=== PATIENT | female | born 1965 | race Two or more races ===

== ENCOUNTER 2019-12-06 15:50 | Emergency (ER) | payer BC ==
[~2019-12-06] VITALS: Ht 162.6 cm; Wt 69.4 kg
[~2019-12-06 15:50] MED LIST: AMOXICILLIN500 MG PO; BACTRIM DS TAB1 EACH PO; CYCLOBENZAPRINE10 MG PO; GLIPIZIDE XL5 MG PO; IBUPROFEN800 MG PO; KEFLEX500 MG PO; LANTUS SOL100 UNIT/1 SUB-Q; MAPAP325 MG PO; METFORMIN HCL1000 MG PO; NAPROXEN500 MG PO; NORCO 5-325 TA1 EACH PO; OMEPRAZOLE20 M1 PO; OXYCODON-ACETA1 EAC2 PO; OXYCODONE-ACET1 EAC1 PO; TRAMADOL HCL50 MG PO
[2019-12-06] MEDS ORDERED: ALL DAY ALLERGY10 MG PO (16:14)
[2019-12-06] MEDS ORDERED: LIPITOR20 MG PO (16:14)
[2019-12-06] MEDS ORDERED: BASAGLAR K100 UNIT/1 SUB-Q (16:15)
[2019-12-06] MEDS ORDERED: SUDOGEST30 MG PO (16:16)
[2019-12-06] MEDS ORDERED: VENTOLIN HFA18 GM (16:16)
[2019-12-06] MEDS ORDERED: FAMCICLOVIR500 MG PO (17:18)
[2019-12-06] MEDS ORDERED: PREDNISONE20 MG PO (17:18)
== END 2019-12-06 17:36 | disposition home or self-care (01) ==
LOC: ED 15:50
DX: G51.0 Bell's palsy (principal); Z88.1 Allergy status to other antibiotic agents; Z88.5 Allergy status to narcotic agent; Z79.899 Other long term (current) drug therapy
CPT/HCPCS: 70450; 80053; 85025; 99284-25; J7512

== ENCOUNTER 2020-02-21 10:49 | Emergency (ER) | payer BC ==
[~2020-02-21] VITALS: Ht 162.6 cm; Wt 69.4 kg
[~2020-02-21 10:49] MED LIST changes: +ALL DAY ALLERGY10 MG PO; +BASAGLAR K100 UNIT/1 SUB-Q; +FAMCICLOVIR500 MG PO; +LIPITOR20 MG PO; +PREDNISONE20 MG PO; +SUDOGEST30 MG PO; +VENTOLIN HFA18 GM
[2020-02-21] MEDS ORDERED: PIOGLITAZONE HC45 MG PO (11:04)
[2020-02-21] MEDS ORDERED: OMEPRAZOLE40 MG PO (11:06)
[2020-02-21] MEDS ORDERED: NAPROXEN500 MG PO (11:06)
[2020-02-21] MEDS ORDERED: FLUTICASONE PRO16 GM NAS (11:06)
--- NOTE | 2020-02-21 21:13 | EKG ---
[facility] [address] [facility] [place] [address] Signed Sinus rhythm with premature ventricular complexes or fusion complexes Low voltage QRS Borderline ECG No previous ECGs available Confirmed by JOSE MANUEL GARCIA DO ([id number]) on 02/21/2020 9:13:21 PM Electronically Signed By: JOSE MANUEL GARCIA DO 02/21/202112 PATIENT NAME: ADRIANA BRANHAMANATristin ALVAREZ Electrocardiogram DATE OF : 69 PHYSICIAN: JOSE MANUEL GARCIA DO REPORT #: [id number] REPORT IS CONFIDENTIAL AND NOT TO BE RELEASED WITHOUT AUTHORIZATION
--- NOTE | 2020-02-23 21:39 | PATH ---
[facility] [address] [facility] [place], [place] [address] Signed ORDERING PHYSICIAN: Bill Winkler MD PATIENT NAME: ANA BARRETOINA GENDER: F : 1965 SPECIMEN(S): No Source Given MOLECULAR PATHOLOGY RESULTS: SARS-CoV-2 Not Detected ADDITIONAL NOTES.: The [place] Fusion SARS-CoV-2 Assay is a multiplex real-time PCR (RT-PCR) in vitro diagnostic test intended for the qualitative detection of RNA from SARS-CoV-2 from individuals who meet COVID-19 clinical and/or epidemiological criteria. In general, SARS-CoV-2 RNA can be detected during the acute phase of infection. Positive results indicate the presence of SARS-CoV-2 RNA. Clinical correlation with patient history and other diagnostic information is necessary to determine patient infection status. Positive results do not rule out bacterial infection or co-infection with other viruses. Negative results do not preclude SARS-CoV-2 infection and should not be used as the sole basis for patient management decisions. Negative results must be combined with other clinical observations, patient history, and epidemiological information. The [place] Fusion SARS-CoV-2 Assay is not yet approved or cleared by the [place] FDA. When there are no FDA-approved or cleared tests available, and other criteria are met, FDA can make tests available under an emergency access mechanism called an Emergency Use Authorization (EUA). The EUA for this test is supported by the [place] of Health and Human Service's (HHS's) declaration that circumstances exist to justify the emergency use of in vitro diagnostics for the detection and/or diagnosis of the virus that causes COVID-19. This EUA will remain in effect for the duration of the COVID-19 declaration justifying emergency of IVDs, unless it is terminated or revoked by FDA, after which the test may no longer be used. The [place] Fusion SARS-CoV-2 Assay is for use only under EUA in US laboratories certified under the Clinical Laboratory Improvement Amendments of 1988 (CLIA) to perform high complexity tests. [facility] is certified under CLIA to perform high complexity PATIENT NAME: ANA BARRETOINA PATHOLOGY DATE OF : [birth year] REPORT #: [id number] PHYSICIAN: EDIE PATHOLOGY PCP: VITALY ANDERSEN MD REPORT IS CONFIDENTIAL AND NOT TO BE RELEASED WITHOUT AUTHORIZATION [address] [address] Signed clinical laboratory testing. PERFORMING LABORATORY.: Molecular testing was performed by [facility] [address] [place], [place] [address] [address] (Turret Press Operator: Bravo Qureshi D.O.; CLIA#: [id number]) Diagnostician: System Interface Pathologist Electronically Signed 02/23/2020 Copies: ~ PATIENT NAME: ANA BARRETO KIM PATHOLOGY DATE OF : [birth year] REPORT #: [id number] PHYSICIAN: EDIE BRADLEY PCP: VITALY ANDERSEN MD REPORT IS CONFIDENTIAL AND NOT TO BE RELEASED WITHOUT AUTHORIZATION
== END 2020-02-21 12:30 | disposition home or self-care (01) ==
LOC: ED 10:49
DX: R07.89 Other chest pain (principal); R22.0 Localized swelling, mass and lump, head; E11.9 Type 2 diabetes mellitus without complications; Z88.5 Allergy status to narcotic agent; Z88.1 Allergy status to other antibiotic agents
CPT/HCPCS: 80053; 84484; 93005; 93010; 99285-25; C9803

== ENCOUNTER 2021-03-25 13:49 | Emergency (ER) | payer OTHER, BC ==
[~2021-03-25] VITALS: Ht 162.6 cm; Wt 69.4 kg
[~2021-03-25 13:49] MED LIST changes: +FLUTICASONE PRO16 GM NAS; +OMEPRAZOLE40 MG PO; +PIOGLITAZONE HC45 MG PO
--- NOTE | 2021-03-25 19:55 | EKG ---
[facility] [address] [place] [address] Signed Normal sinus rhythm Normal ECG When compared with ECG of 21-FEB-2020 11:16, fusion complexes are no longer present premature ventricular complexes are no longer present Confirmed by DANNY GONZALEZ MD ([id number]) on 03/25/2021 7:55:35 PM Electronically Signed By: DANNY GONZALEZ MD 03/25/211954 PATIENT NAME: ANA BARRETO Electrocardiogram DATE OF : [birth year] PHYSICIAN: DANNY GONZALEZ MD REPORT #: [id number] REPORT IS CONFIDENTIAL AND NOT TO BE RELEASED WITHOUT AUTHORIZATION
== END 2021-03-25 16:28 | disposition home or self-care (01) ==
LOC: ED 13:49
DX: T23.201A Burn of second degree of right hand, unspecified site, initial encounter (principal); T31.0 Burns involving less than 10% of body surface; W86.8XXA Exposure to other electric current, initial encounter; E11.9 Type 2 diabetes mellitus without complications; J45.909 Unspecified asthma, uncomplicated; Z88.5 Allergy status to narcotic agent; Z88.1 Allergy status to other antibiotic agents; Z79.899 Other long term (current) drug therapy; Z79.84 Long term (current) use of oral hypoglycemic drugs
CPT/HCPCS: 16020; 80053; 81001; 85025; 85610; 93005; 93010; 99285-25; A9270

== ENCOUNTER 2023-01-20 23:42 | Emergency (ER) | payer OTHER ==
[~2023-01-20] VITALS: Ht 162.6 cm; Wt 68.6 kg
[2023-01-21] MEDS ORDERED: SERTRALINE HCL100 MG PO (00:01)
[2023-01-21] MEDS ORDERED: LISINOPRIL2.5 MG PO (00:02)
[2023-01-21] MEDS ORDERED: BASAGLAR K100 UNIT/1 SQ (00:02)
[2023-01-21] MEDS ORDERED: ATORVASTATIN CA20 MG PO (00:02)
[2023-01-21 01:35] VITALS: BP 134/70
== END 2023-01-21 01:37 | disposition home or self-care (01) ==
LOC: ED 23:42
DX: K42.9 Umbilical hernia without obstruction or gangrene (principal); E11.9 Type 2 diabetes mellitus without complications; J45.909 Unspecified asthma, uncomplicated; Z88.5 Allergy status to narcotic agent; Z88.1 Allergy status to other antibiotic agents; Z79.899 Other long term (current) drug therapy; Z79.4 Long term (current) use of insulin; Z79.84 Long term (current) use of oral hypoglycemic drugs
CPT/HCPCS: 36415; 74177; 80053; 81003; 83690; 85025; 99284-25; J2405; Q9967

== ENCOUNTER 2023-06-07 12:35 | Emergency (ER) | payer OTHER ==
[~2023-06-07] VITALS: Ht 162.6 cm; Wt 68.6 kg
[~2023-06-07 12:35] MED LIST changes: +ATORVASTATIN CA20 MG PO; +BASAGLAR K100 UNIT/1 SQ; +LISINOPRIL2.5 MG PO; +SERTRALINE HCL100 MG PO
[2023-06-07] MEDS ORDERED: CYMBALTA60 MG PO (12:48)
[2023-06-07 13:00] LABS: BASOPHILS 0.9 % (0-2); EOSINOPHILS 2.2 % (0-6); HEMATOCRIT 35.8 % (35.0-50.0); LYMPHOCYTES 30.1 % (24-44); MCH 29.9 (27-36); MCHC 33.6 g/dl (30-36); MCV 88.9 fl (81-99); MONOCYTES 4.3 % (0-12); NEUTROPHILS 62.5 % (39-80); PLATELET COUNT 349 K/uL (140-440); RBC 4.03 M/ul (4.3-5.7); RDW 13.8 (10.5-15.0)
[2023-06-07 13:15] LABS: ALBUMIN 3.6 g/dL (3.4-5.0); ALBUMIN/GLOBULIN RATIO 1.03 (1.1-2.4); ANION GAP 13.1 (7-21); BILIRUBIN, TOTAL 0.2 ng/dL (0.2-1.0); BUN/CREATININE RATIO 20.25 (6.0-28.6); CALCIUM 8.5 mg/dL (8.5-10.1); CREATININE, SERUM 0.79 mg/dL (0.55-1.02); POTASSIUM 4.1 mmol/L (3.5-5.1); PROTEIN, TOTAL 7.1 g/dL (6.4-8.2)
[2023-06-07] MEDS ORDERED: NAPROSYN500 MG PO (14:09)
[2023-06-07] MEDS ORDERED: CYCLOBENZAPRINE10 MG PO (14:09)
[2023-06-07] MEDS ORDERED: TRAMADOL HCL50 MG PO (14:31)
[2023-06-07 14:37] VITALS: BP 161/77
== END 2023-06-07 14:37 | disposition home or self-care (01) ==
LOC: ED 12:35
PROVIDERS: Internal Medicine
DX: R51.9 Headache, unspecified (principal); E11.65 Type 2 diabetes mellitus with hyperglycemia; J45.909 Unspecified asthma, uncomplicated; Z88.1 Allergy status to other antibiotic agents; Z88.5 Allergy status to narcotic agent; Z79.899 Other long term (current) drug therapy; Z79.4 Long term (current) use of insulin; Z79.84 Long term (current) use of oral hypoglycemic drugs
CPT/HCPCS: 36415; 70450; 80053; 85025; 96361; 96374; 96375; 99284-25; J1170; J1815; J1885; J2405; J7030

== ENCOUNTER 2024-04-03 09:53 | Emergency (ER) | payer OTHER ==
[~2024-04-03] VITALS: Ht 162.6 cm; Wt 67.5 kg
[~2024-04-03 09:53] MED LIST changes: +ASPIRIN81 MG PO; +CYMBALTA60 MG PO; +JARDIANCE25 MG PO; +MELOXICAM15 MG PO; +NAPROSYN500 MG PO; +ONDANSETRON ODT8 MG PO; +PERCOCET 5-3251 EACH PO
--- OUTSIDE RECORDS SUMMARY | 2024-04-03 09:54 | XMS ---
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 E.DGisela VISIT COUNT (12 MO.) [address] [place] [address] Reema Jesus (Jovon Sigala) TOTAL 5 NOTE: Visits indicate total known visits. ED/UCC VISIT TRACKING (12 MO.) 04/03/2024 09:53 [facility] TYPE: Emergency COMPLAINT: - HEADACHE 03/11/2024 13:12 [facility] [place] TYPE: Emergency COMPLAINT: - FLANK PAIN DIAGNOSES: - Acute pancreatitis without necrosis or infection, unspecified - Allergy status to narcotic agent - Allergy status to other antibiotic agents - intermission coordinator (current) use of aspirin - intermission coordinator (current) use of insulin - FPC (current) use of oral hypoglycemic drugs - Other ad terminal makeup operator (current) drug therapy - Right lower quadrant pain - Type 2 diabetes mellitus without complications - Unilateral inguinal hernia, without obstruction or gangrene, not specified as recurrent [facility] Emergency DIAGNOSES: - Asymptomatic varicose veins of right lower extremity - bilateral leg pain - Leg Pain - lt leg pain 11/07/2023 15:36 [facility] [place] TYPE: Emergency COMPLAINT: - R LEG PAIN DIAGNOSES: - Allergy status to narcotic agent - Allergy status to other antibiotic agents - FPC (current) use of aspirin - FPC (current) use of insulin - Other fpc (current) drug therapy - Pain in right lower leg - Phlebitis and thrombophlebitis of right calf muscular vein - Phlebitis and thrombophlebitis of superficial vessels of right lower extremity - Type 2 diabetes mellitus without complications - Unspecified asthma, uncomplicated 06/07/2023 12:36 [facility] [place] TYPE: Emergency COMPLAINT: - R BEHIND EAR PAIN DIAGNOSES: - Allergy status to narcotic agent - Allergy status to other antibiotic agents - Headache, unspecified - intermission coordinator (current) use of insulin - intermission coordinator (current) use of oral hypoglycemic drugs - Other ad terminal makeup operator (current) drug therapy - Type 2 diabetes mellitus with hyperglycemia - Unspecified asthma, uncomplicated INPATIENT VISIT TRACKING (12 MO.) No inpatient visits to display in this time frame [email or web address]
[2024-04-03] MEDS ORDERED: DULOXETINE HCL30 MG PO (10:12)
[2024-04-03] MEDS ORDERED: NAPROXEN500 MG PO (10:12)
[2024-04-03] MEDS ORDERED: SODIUM CHLORIDE 0.9% 1,000 ML IV PRN (10:15)
[2024-04-03] MEDS ORDERED: TETRACAINE HCL 0.5% 4 ML BTL OU SCH (10:15)
[2024-04-03] MEDS ORDERED: KETOROLAC TROMETHAMINE 30 MG/ML VIAL IV ONE (10:15)
[2024-04-03] MEDS ORDERED: ondansetron HCL 4 MG/2 ML VIAL IV ONE (10:15)
[2024-04-03 10:40] LABS: BASOPHILS 0.6 % (0-2); EOSINOPHILS 3.4 % (0-6); HEMATOCRIT 39.2 % (35.0-50.0); HEMOGLOBIN 12.9 g/dL (12.0-18.0); LYMPHOCYTES 23.2 % (24-44); MCH 29.4 (27-36); MCHC 32.8 g/dl (30-36); MCV 89.7 fl (81-99); MONOCYTES 4.9 % (0-12); NEUTROPHILS 67.9 % (39-80); PLATELET COUNT 329 K/uL (140-440); RBC 4.37 M/ul (4.3-5.7); RDW 14.1 (10.5-15.0)
[2024-04-03 10:51] LABS: PARTIAL THROMBOPLASTIN TIME 28.1 Sec (22.9-41.3)
[2024-04-03 10:52] LABS: INR 0.92 (0.80-1.30); PROTIME 11.7 Sec (11.2-14.2)
[2024-04-03 11:08] LABS: ALBUMIN 4.1 g/dL (3.4-5.0); ALBUMIN/GLOBULIN RATIO 1.17 (1.1-2.4); ALCOHOL, MEDICAL <3 ng/dL (<3); ALKALINE PHOSPHATASE 85 U/L (46-116); ALT (SGPT) 26 U/L (14-59); ANION GAP 13.3 (7-21); AST (SGOT) 17 U/L (15-37); BILIRUBIN, TOTAL 0.3 ng/dL (0.2-1.0); CALCIUM 9.4 mg/dL (8.5-10.1); CARBON DIOXIDE 26 mmol/L (21-32); CHLORIDE 106 mmol/L (98-107); CREATININE, SERUM 0.78 mg/dL (0.55-1.02); GLOMERULAR FILTRATION RATE,EST 89 mL/min (>60); POTASSIUM 4.3 mmol/L (3.5-5.1); PROTEIN, TOTAL 7.6 g/dL (6.4-8.2); TSH, 3RD GENERATION 4.509 uIU/mL (0.358-3.740); UREA NITROGEN 22 mg/dL (7-18)
[2024-04-03 12:39] LABS: BILIRUBIN, URINE NEGATIVE (negative); BLOOD/HGB, URINE NEGATIVE (Negative); KETONE, URINE NEGATIVE (Negative); LEUK ESTERASE, URINE NEGATIVE (negative); NITRITE, URINE NEGATIVE (negative); PH, URINE 5.5 (5-7)
[2024-04-03 13:00] LABS: AMPHETAMINES, URINE NEGATIVE (NEGATIVE); BARBITURATES, URINE NEGATIVE (NEGATIVE); BENZODIAZEPINE, URINE NEGATIVE (NEGATIVE); BUPRENORPHINE, URINE NEGATIVE (NEGATIVE); CANNABINOID, URINE NEGATIVE (NEGATIVE); COCAINE, URINE NEGATIVE (NEGATIVE); ECSTASY, URINE NEGATIVE (NEGATIVE); FENTANYL, URINE NEGATIVE (NEGATIVE); METHADONE, URINE NEGATIVE (NEGATIVE); OPIATES, URINE NEGATIVE (NEGATIVE); OXYCODONE, URINE NEGATIVE (NEGATIVE); PHENCYCLIDINE, URINE NEGATIVE (NEGATIVE)
[2024-04-03] MEDS ORDERED: KETOROLAC TROME10 MG PO (13:20)
[2024-04-03 13:35] VITALS: BP 127/71
--- NOTE | 2024-04-03 21:36 | EKG ---
[facility] [address] [place] [address] Signed Normal sinus rhythm Normal ECG When compared with ECG of 25-MAR-2021 15:10, No significant change was found Confirmed by Tiesha Christine MD () on 04/03/2024 9:35:53 PM Electronically Signed By: TIESHA CHRISTINE MD 04/03/24 2136 PATIENT NAME: ANA BARRETO Electrocardiogram DATE OF : [birth year] PHYSICIAN: TIESHA CHRISTINE MD REPORT #: [id number] REPORT IS CONFIDENTIAL AND NOT TO BE RELEASED WITHOUT AUTHORIZATION
== END 2024-04-03 13:36 | disposition home or self-care (01) ==
LOC: ED 09:53
PROVIDERS: Emergency Medicine
DX: R51.9 Headache, unspecified (principal); E86.0 Dehydration; E11.9 Type 2 diabetes mellitus without complications; J45.909 Unspecified asthma, uncomplicated; Z88.1 Allergy status to other antibiotic agents; Z88.5 Allergy status to narcotic agent; Z79.82 Long term (current) use of aspirin; Z79.84 Long term (current) use of oral hypoglycemic drugs; Z79.4 Long term (current) use of insulin; Z79.899 Other long term (current) drug therapy
CPT/HCPCS: 36415; 70450; 80053; 80307; 81003; 82140; 84443; 84484; 85025; 85610; 85730; 93005; 93010; 96361; 96374; 96375; 99284-25; G0480; J1885; J2405; J7030

== ENCOUNTER 2024-07-16 13:45 | Observation (INO) | payer OTHER ==
[~2024-07-16] VITALS: Ht 162.6 cm; Wt 63.7 kg
[~2024-07-16 13:45] MED LIST changes: +DULOXETINE HCL30 MG PO; +KETOROLAC TROME10 MG PO
[2024-07-16] MEDS ORDERED: KETOROLAC TROMETHAMINE 30 MG/ML VIAL IV ONE (14:30)
[2024-07-16] MEDS ORDERED: METOCLOPRAMIDE HCL 10 MG/2 ML SDV IV ONE (14:30)
[2024-07-16] MEDS ORDERED: SODIUM CHLORIDE 0.9% 1,000 ML IV PRN (14:30)
[2024-07-16] MEDS ORDERED: diphenhydrAMINE HCL 50 MG/ML VIAL IV ONE (14:30)
[2024-07-16 14:41] LABS: BASOPHILS 0.9 % (0-2); EOSINOPHILS 2.7 % (0-6); HEMOGLOBIN 13.3 g/dL (12.0-18.0); LYMPHOCYTES 36.6 % (24-44); MCH 30.5 (27-36); MCHC 33.3 g/dl (30-36); MCV 91.5 fl (81-99); MONOCYTES 5.3 % (0-12); NEUTROPHILS 54.5 % (39-80); PLATELET COUNT 317 K/uL (140-440); RBC 4.37 M/ul (4.3-5.7); RDW 14.1 (10.5-15.0)
[2024-07-16 14:47] LABS: INR 0.89 (0.80-1.30); PROTIME 11.7 Sec (11.2-14.2)
[2024-07-16 14:49] LABS: PARTIAL THROMBOPLASTIN TIME 27.6 Sec (22.9-41.3)
[2024-07-16 14:55] LABS: ALBUMIN 3.8 g/dL (3.4-5.0); ALBUMIN/GLOBULIN RATIO 0.93 (1.1-2.4); ALKALINE PHOSPHATASE 97 U/L (46-116); ALT (SGPT) 21 U/L (14-59); ANION GAP 13.4 (7-21); AST (SGOT) 14 U/L (15-37); BILIRUBIN, TOTAL 0.2 ng/dL (0.2-1.0); BUN/CREATININE RATIO 23.25 (6.0-28.6); CALCIUM 9.3 mg/dL (8.5-10.1); CARBON DIOXIDE 27 mmol/L (21-32); CHLORIDE 106 mmol/L (98-107); CREATININE, SERUM 0.86 mg/dL (0.55-1.02); GLOMERULAR FILTRATION RATE,EST 79 mL/min (>60); POTASSIUM 4.4 mmol/L (3.5-5.1); PROTEIN, TOTAL 7.9 g/dL (6.4-8.2); UREA NITROGEN 20 mg/dL (7-18)
[2024-07-16] MEDS ORDERED: ATORVASTATIN 40 MG TAB PO ONE (16:00)
[2024-07-16] MEDS ORDERED: ASPIRIN 81 MG CHEW PO ONE (16:00)
[2024-07-16] MEDS ORDERED: DEXTROSE 50% 50 ML SYR IV PRN ×2 (18:15)
[2024-07-16] MEDS ORDERED: GLUCAGON,HUMAN RECOMBINANT 1 MG/ML VIAL SUB-Q PRN (18:15)
[2024-07-16] MEDS ORDERED: ondansetron HCL 4 MG/2 ML VIAL IV PRN (18:15)
[2024-07-16] MEDS ORDERED: PROCHLORPERAZINE EDISYLATE 10 MG/2 ML VIAL IV PRN (18:15)
[2024-07-16] MEDS ORDERED: DEXTROSE 5% 1,000 ML IV PRN (18:15)
[2024-07-16] MEDS ORDERED: ACETAMINOPHEN 325 MG TAB PO PRN (18:15)
[2024-07-16] MEDS ORDERED: IBLOOD GLUCOSE TEST STRIP 1 EA TEST XX PRN (18:15)
[2024-07-16 19:53] VITALS: BP 151/64
[2024-07-16] MEDS ORDERED: INSULIN LISPRO 100 UNIT/ML ML SUB-Q SCH (21:00)
[2024-07-16] MEDS ORDERED: IBLOOD GLUCOSE TEST STRIP 1 EA TEST VI SCH (21:00)
[2024-07-16] MEDS ORDERED: KETOROLAC TROMETHAMINE 30 MG/ML VIAL IV PRN (23:00)
[2024-07-16 23:19] VITALS: BP 151/64
[2024-07-17] VITALS (9 sets, daily range): BP systolic 123–145; BP diastolic 60–69
[2024-07-17 05:25] LABS: BASOPHILS 0.7 % (0-2); EOSINOPHILS 2.2 % (0-6); HEMATOCRIT 36.2 % (35.0-50.0); HEMOGLOBIN 12.3 g/dL (12.0-18.0); LYMPHOCYTES 31.9 % (24-44); MCH 30.7 (27-36); MCV 90.3 fl (81-99); NEUTROPHILS 60.2 % (39-80); PLATELET COUNT 324 K/uL (140-440); RBC 4.01 M/ul (4.3-5.7); RDW 14.3 (10.5-15.0)
[2024-07-17 05:44] LABS: ALBUMIN 3.4 g/dL (3.4-5.0); ALBUMIN/GLOBULIN RATIO 0.97 (1.1-2.4); ANION GAP 13.9 (7-21); BILIRUBIN, TOTAL 0.3 ng/dL (0.2-1.0); CALCIUM 8.9 mg/dL (8.5-10.1); CREATININE, SERUM 0.68 mg/dL (0.55-1.02); PHOSPHORUS, INORGANIC 4.6 mg/dL (2.5-4.9); POTASSIUM 3.9 mmol/L (3.5-5.1); PROTEIN, TOTAL 6.9 g/dL (6.4-8.2)
[2024-07-17 05:46] LABS: CHOLESTEROL/HDL RATIO 2.5
[2024-07-17] MEDS ORDERED: SUMAtriptan succinate 50 MG TAB PO ONE (11:15)
[2024-07-17] MEDS ORDERED: PHARMACY RENAL DOSE ADJUSTMENT 1 DOSE MISC PO SCH (12:00)
[2024-07-17] MEDS ORDERED: MECLIZINE HCL 25 MG TAB PO PRN (14:30)
[2024-07-17] MEDS ORDERED: SUMAtriptan succinate 50 MG TAB PO PRN (21:45)
--- NOTE | 2024-07-17 21:54 | EKG ---
[facility] [address] [place] [address] Signed Normal sinus rhythm Normal ECG When compared with ECG of 03-APR-2024 10:09, No significant change was found Confirmed by Tiesha Christine MD () on 07/17/2024 9:54:08 PM Electronically Signed By: TIESHA CHRISTINE MD 07/17/24 215 PATIENT NAME: ANA BARRETO Electrocardiogram DATE OF : [birth year] PHYSICIAN: TIESHA CHRISTINE MD REPORT #: [id number] REPORT IS CONFIDENTIAL AND NOT TO BE RELEASED WITHOUT AUTHORIZATION
[2024-07-18 05:16] VITALS: BP 119/64
[2024-07-18 05:17] VITALS: BP 119/64
[2024-07-18 08:00] LABS: BASOPHILS 0.7 % (0-2); EOSINOPHILS 2.7 % (0-6); HEMATOCRIT 40.7 % (35.0-50.0); HEMOGLOBIN 13.5 g/dL (12.0-18.0); LYMPHOCYTES 34.2 % (24-44); MCHC 33.1 g/dl (30-36); MCV 90.9 fl (81-99); MONOCYTES 5.3 % (0-12); NEUTROPHILS 57.1 % (39-80); PLATELET COUNT 333 K/uL (140-440); RBC 4.48 M/ul (4.3-5.7); RDW 14.2 (10.5-15.0)
[2024-07-18 08:05] LABS: ANION GAP 10.2 (7-21); BUN/CREATININE RATIO 27.77 (6.0-28.6); CREATININE, SERUM 0.72 mg/dL (0.55-1.02); POTASSIUM 4.2 mmol/L (3.5-5.1)
[2024-07-18] MEDS ORDERED: SUMAtriptan succinate 50 MG TAB PO PRN (09:00)
[2024-07-18 09:18] LABS: ERYTHROCYTE SEDIMENTATION RATE 12
[2024-07-18 09:53] VITALS: BP 130/67
[2024-07-18 10:20] VITALS: BP 130/67
[2024-07-18] MEDS ORDERED: ATORVASTATIN CA20 MG PO (10:23)
[2024-07-18] MEDS ORDERED: MECLIZINE HCL25 MG PO (10:24)
[2024-07-18] MEDS ORDERED: SUMATRIPTAN SUC50 MG PO (10:35)
== END 2024-07-18 11:14 | disposition home or self-care (01) ==
LOC: ED 13:45 → MS 13:47
PROVIDERS: Emergency Medicine; ADMIT Family Medicine; ATTEND Family Medicine
DX: H53.2 Diplopia (principal); R51.9 Headache, unspecified; R42 Dizziness and giddiness; I10 Essential (primary) hypertension; E11.9 Type 2 diabetes mellitus without complications; J45.909 Unspecified asthma, uncomplicated; Z88.1 Allergy status to other antibiotic agents; Z88.5 Allergy status to narcotic agent; Z79.899 Other long term (current) drug therapy
CPT/HCPCS: 36415; 70450; 70496; 70498; 70551; 71045; 80048; 80053; 80061; 83036; 83735; 84100; 84484; 85025; 85610; 85651; 85730; 86140; 93005; 93010; 93306; 96376; 97161; 97165; 97530; 99285-25; A9270; G0378; J1200; J1815; J1885; J2765; J7030; Q9967

== ENCOUNTER 2024-12-24 19:52 | Emergency (ER) | payer OTHER | END 2024-12-24 23:45 | disposition home or self-care (01) | LOC: ED 19:52 | DX: K21.9 Gastro-esophageal reflux disease without esophagitis (principal); R10.9 Unspecified abdominal pain; E11.9 Type 2 diabetes mellitus without complications; I10 Essential (primary) hypertension; J45.909 Unspecified asthma, uncomplicated; Z79.4 Long term (current) use of insulin; Z79.84 Long term (current) use of oral hypoglycemic drugs; Z79.899 Other long term (current) drug therapy; Z79.82 Long term (current) use of aspirin; Z88.1 Allergy status to other antibiotic agents; Z88.5 Allergy status to narcotic agent ==

== ENCOUNTER 2025-07-13 11:55 | Day surgery (SDC) | payer OTHER ==
[~2025-07-13] VITALS: Ht 160 cm; Wt 64.0 kg
[~2025-07-13 11:55] MED LIST changes: +AMITRIPTYLINE H25 MG PO; +DEXCOM G7 SENS1 EACH MC; +ESTRADIOL-NORE1 EACH PO; +HYDROXYZINE HCL25 MG PO; +IBLOOD GLUCOSE TEST STRIP 1 EA TEST VI PRN; +LACTATED RINGER'S 1,000 ML IV SCH; +LIDOCAINE HCL 1% 5 ML SDV INJ ONE; +LIDOCAINE HCL 2% 5 ML SDV ONE; +MECLIZINE HCL25 MG PO; +PRILOSEC OTC20 MG PO; +SUMATRIPTAN SUC50 MG PO; -VENTOLIN HFA18 GM; +VENTOLIN HFA18 GM INH
[2025-07-13 12:10] VITALS: BP 125/64
[2025-07-13 12:22] LABS: BASOPHILS 0.8 % (0.1-1.2); EOSINOPHILS 2.4 % (0.7-5.8); LYMPHOCYTES 36.0 % (19.3-51.7); MCH 30.3 PG (25.6-32.2); MCHC 33.9 g/dL (32.2-35.5); MCV 89.4 fL (79.4-94.8); MONOCYTES 6.0 % (4.7-12.5); NEUTROPHILS 54.6 % (34.0-71.1); RBC 4.32 M/uL (3.93-5.22)
[2025-07-13] MEDS ORDERED: ADVIL200 M1 PO (12:22)
[2025-07-13 12:44] LABS: ALT (SGPT) 23.0 U/L (14-59); AST (SGOT) 16.0 U/L (15-37); GLOMERULAR FILTRATION RATE,EST 81.0 mL/min (>60); PROTEIN, TOTAL 7.8 g/dL (6.4-8.2); UREA NITROGEN 18.0 mg/dL (7-18)
--- NOTE | 2025-07-13 13:52 | NUR ---
07/13/25 1352 Shauna Greenwood 1344 PT ARRIVED TO PACU ON 3L RESP EVEN AND UNLABORED. 1351 PT WAKES TO TACTILE STIMULI AND DENIES CONCERNS. PASSING GAS OFF AND ON.
[2025-07-13 14:31] VITALS: BP 120/72
--- NOTE | 2025-07-13 14:33 | OR ---
[facility] [address] [place], [place] [address] Signed DATE OF OPERATION: 07/13/2025 SURGEON: Genevieve Massey DO PREOPERATIVE DIAGNOSIS: Colon cancer screening. POSTOPERATIVE DIAGNOSES: 1. Colon cancer screening with colon polyp at 30 cm. 2. Nonspecific colitis. PROCEDURE PERFORMED: Colonoscopy with cold forceps biopsies of the polyp at 30 cm. ANESTHESIA: IV sedation. ESTIMATED BLOOD LOSS: Scant. DRAINS: None. COMPLICATIONS: None. DESCRIPTION OF PROCEDURE: The patient was brought to the GI lab, placed in supine position. After induction of IV sedation, the patient was then placed in left lateral position, padded to satisfaction of Anesthesia. The Olympus video colonoscope was then introduced into the rectum and while insufflating and advancing under direct visualization scope was advanced to the rectosigmoid, sigmoid colon, descending colon, transverse colon, ascending colon into the cecum. Colon was then insufflated and exploration of mucosal surface was carried out. The cecum and ascending colon had no intrinsic or extrinsic masses. No lesions or ulceration was noted. Scope was brought back, past the hepatic flexure into the transverse colon. No intrinsic or extrinsic masses. No lesions or ulceration noted. Scope was brought back, past the splenic flexure into the descending colon, some nonspecific colitis was present. No ulcerations were noted. Scope was then brought back into the sigmoid colon at approximately 30 cm, a flat broad-based polyp was identified. Photographs were taken and multiple biopsies were taken of this polyp with Electronically Signed By: GENEVIEVE MASSEY DO 07/13/25 1433 PATIENT NAME: ANA BARRETO OPERATIVE REPORT DATE OF : 69 REPORT #: [id number] PHYSICIAN: GENEVIEVE MASSEY DO PCP: NIRU PEREZ REPORT IS CONFIDENTIAL AND NOT TO BE RELEASED WITHOUT AUTHORIZATION [address] [place], [place] [address] Signed cold forceps and was passed off the field for pathologic review. Otherwise, other than some nonspecific colitis of the sigmoid colon was unremarkable. Rectosigmoid had some nonspecific colitis as well but no ulcerations appreciated. No intrinsic or extrinsic masses appreciated. The scope was withdrawn. The patient tolerated the procedure well, taken to recovery room in satisfactory condition. Genevieve Massey DO /SOBEIDAL /[id number] Copies: ~ Electronically Signed By: GENEVIEVE MASSEY DO 07/13/25 1433 PATIENT NAME: ANA BARRETO OPERATIVE REPORT DATE OF : [birth year] REPORT #: [id number] PHYSICIAN: GENEVIEVE MASSEY DO PCP: NIRU PEREZ REPORT IS CONFIDENTIAL AND NOT TO BE RELEASED WITHOUT AUTHORIZATION
== END 2025-07-13 14:38 ==
LOC: DS 11:55
PROVIDERS: Nurse Anesthetist, Certified Registered; ATTEND Surgery
PROC: 0DBN8ZX Excision of Sigmoid Colon, Via Natural or Artificial Opening Endoscopic, Diagnostic (ICD-10-PCS; principal; 2025-07-13 13:00)
DX: Z12.11 Encounter for screening for malignant neoplasm of colon (principal); D12.5 Benign neoplasm of sigmoid colon; K52.9 Noninfective gastroenteritis and colitis, unspecified; E11.9 Type 2 diabetes mellitus without complications; F32.A Depression, unspecified; M79.7 Fibromyalgia; G47.00 Insomnia, unspecified; Z79.84 Long term (current) use of oral hypoglycemic drugs; Z79.1 Long term (current) use of non-steroidal anti-inflammatories (NSAID); Z79.4 Long term (current) use of insulin; Z79.899 Other long term (current) drug therapy; Z88.1 Allergy status to other antibiotic agents; Z88.5 Allergy status to narcotic agent; Z88.6 Allergy status to analgesic agent; Z88.8 Allergy status to other drugs, medicaments and biological substances; Z90.49 Acquired absence of other specified parts of digestive tract
CPT/HCPCS: 00812; 36415; 80053; 85025; J2003; J2704; J7121